=== PATIENT | male | born 1990 | race Caucasian/White ===

== ENCOUNTER 2019-02-17 04:45 | Emergency (ER) | payer BC, OTHER ==
[~2019-02-17] VITALS: Ht 195.6 cm; Wt 86.2 kg
[2019-02-17 05:00] VITALS: BP 138/72
== END 2019-02-17 06:31 | disposition left against medical advice (07) ==
LOC: ER 04:45
DX: M79.601 Pain in right arm (principal); Z53.21 Procedure and treatment not carried out due to patient leaving prior to being seen by health care provider; W54.0XXA Bitten by dog, initial encounter; Y93.89 Activity, other specified; Y99.8 Other external cause status; Y92.89 Other specified places as the place of occurrence of the external cause